=== PATIENT | male | born 1930 | race Caucasian/White ===

== ENCOUNTER 2016-11-18 11:16 | Day surgery (SDC) | payer MEDICARE ==
[~2016-11-18] VITALS: Ht 175.3 cm; Wt 95.8 kg
[2016-11-18] VITALS (8 sets, daily range): BP systolic 99–159; BP diastolic 65–87; PULSE 67–78; RESP 14–18; O2SAT 95–98
[~2016-11-18 11:16] MED LIST: ASPI-973 PO; CeFAZolin 2 Gm/50 mL D5W IV Premix IV ONE; METO25TA3 PO; SIMV40TA5 PO; VITA100T6 PO; ZOLP10TA5 PO
[2016-11-18] MEDS ORDERED: MetoCLOpramide 5 mg/mL 2 mL Inj ONE (11:17)
[2016-11-18] MEDS ORDERED: Dexamethasone 4 mg/mL Inj ONE (11:17)
[2016-11-18] MEDS ORDERED: Propofol 10,000 mCg/mL 20 mL Inj ONE (11:17)
[2016-11-18] MEDS ORDERED: Ondansetron 2 mg/mL 2 mL Inj ONE (11:17)
[2016-11-18] MEDS: Lactated Ringer's 1,000 ML IV SCH ×2 (11:43→15:03)
[2016-11-18] MEDS ORDERED: Lactated Ringer's 500 ML IV PRN (14:33)
[2016-11-18] MEDS ORDERED: Lactated Ringer's 1,000 ML IV SCH (14:33)
--- NOTE | 2016-11-18 14:33 | PCM.HPANE ---
Patient Data Surgeon Admitting Provider: Attending Provider:Khalif Ivey MD Primary Care Physician:Lindsey Hernandez MD Other Provider:Lanette Rinconingham Anesthesia Reason for Visit Right Inguinal Hernia Ht/WT & BMI Height (Feet): 5 Height (Inches): 9 Weight (Kilograms): 95.8 Body Mass Index 31.00 Allergies Coded Allergies: No Known Allergies (Verified Allergy, Unknown, 11/18/16) Past Anesthesia History Anesthesia History: Denies:: Abnormal Airway, Anesthesia Reactions, Difficult Intubation, Fam Anesthesia Reaction, Fam Malignant Hypertherm, Malignant Hyperthermia Diabetes History Hx Diabetes?: No MRSA MRSA: No Medications Blood Thinner: Aspirin Hypertension Medication: Yes Home Meds Incl Beta Tomi: Yes Date Beta Tomi Taken: Nov 18, 2016 Time Beta Tomi Taken: 629 Reported Medications Zolpidem 10 Mg [id number] Mg PO HS PRN For Insomnia Ref 0 11/17/16 Vitamin E Acid Succinate (Vitamin E)100 Unit [id number] Unit PO DAILY 11/17/16 Metoprolol Succinate ER (Toprol XL)25 Mg Qahanv31 Mg PO DAILY Ref 0 11/17/16 Simvastatin 40 Mg Atswmi32 Mg PO HS 30 Days Ref 0 11/17/16 Aspirin 81 Mg Jdaofh69 Mg PO DAILY Ref 0 11/17/16 Discontinued Reported Medications Zolpidem 10 Mg [id number] Mg PO HS PRN For Insomnia Ref 0 10/14/15 Aspirin 81 Mg Kqtuhb55 Mg PO DAILY Ref 0 10/14/15 Simvastatin 40 Mg Hcevii65 Mg PO HS 30 Days Ref 0 05/05/15 Metoprolol Succinate ER (Toprol XL)25 Mg Hmwujf91 Mg PO DAILY Ref 0 05/05/15 History HEENT History: Positive for:: Cataracts (cataracts bilaterally ) Hearing Problem (doesnt usually wear aides) Denies:: Abnormal Airway Difficult Intubation Dysphagia Glaucoma Sinus Problem TMJ Denture Type: Full- Upper Partial- Lower Hx of Heart Problems?: Yes Cardiovascular History: Positive for:: Cardiac Surgery (3 vessel CABG 2001- in [place] ) Hypertension Denies:: AICD Heart Murmur Irregular Heartbeat Pacemaker Peripheral Vascular Rheumatic Fever Hx of Respiratory Problem?: No Respiratory History: Positive for:: Use of C-PAP Machine (refuses sleep study) Denies:: Asthma COPD Emphysema Oxygen Administration Pneumonia Tuberculosis Use of Inhalers / NEBS Hx Neurologic Problems?: No Neurological History: Denies:: CVA Headaches Multiple Sclerosis Parkinson's Disease Seizures TIA Hx of GI Problems?: Yes Gastrointestinal History: Positive for:: Diverticulitis (hx of) Gall Bladder Disease (removed ) Denies:: Gastroesphageal Reflux Gastrointestinal Bleeding Heartburn Hepatitis Hiatal Hernia Liver Disease Rectal Bleeding (pilonidal cyst) Other GI Pertinent History: right inguinal hernia current admission problem. Hx of recal ca- treated with chemoradiation- no resection- Hx of Problems?: No Genitourinary History: Denies:: Kidney Stones Urinary Tract Infection Male Hx: Positive for:: Prostate Problems (BPH) Denies:: Scrotal Mass Testicular Surgery Skin History: Denies:: History Skin Disorders? Pressure Ulcers Hx Musculoskeletal Problems?: Yes Musculoskeletal History: Positive for:: Back Injury (spinal cyst removed 1953) Osteoarthritis Denies:: Fibromyalgia Joint Replacement Hx of Psycho/Social Problems?: No Psycho Social History: Denies:: Anxiety Hx Depression Hx Surgeries?: Yes (PYNIADAL CYST, BYPASS, GALLBALDDER, ) Hx Any Other Health Problems?: Yes Other History: Positive for:: Cancer (rectal ) Denies:: Thyroid Disease History Blood Transfusions: Positive for:: Accept Blood Products? Denies:: Blood Transfusions Hx Diabetes: No Hx Alcohol Use: NoHx Substance Use: No Smoking Status: Never Smoker Have You Smoked inLast 12 mo: No Stop/Bang Treated for Sleep Apnea?: No Do You Have a CPAP Machine?: No P-Blood Pressure: treated: Yes B- Body Mass Index > 35 kg/m2: No A- Age over 50: Yes N- Neck Large Circumference: No G- Gender Male: Yes ELVER Risk Assessment: Low Risk, <3 Yes Risk Assessment Category Category 1A: Patient has history of documented sleep apnea, and HAS NOT received any narcotic, sedative or anesthesia administration during this stay. Category 1B: Patient has history of documented sleep apnea, and HAS received any narcotic , sedative or anesthesia administration during this stay Category 2: Patient has SUSPECTED Obstructive Sleep Apnea, and HAS received any narcotic , sedative or anesthesia administration during this stay. Category 3: Patient has SUSPECTED Obstructive Sleep Apnea and HAS NOT received narcotic, sedative or anesthesia administration during this stay. Category 4: Outpatient in Procedural Areas with known sleep apnea or who screen positive for High Risk via the STOP/BANG questionnaire. Exam Exam Vital Signs Vital Signs Date Time Temp Pulse Resp B/P Pulse Ox O2 Delivery O2 Flow Rate FiO2 11/18/16 11:40 36.4 76 18 137/86 98 Room Air General Appearance: Oriented X3 HEENT/AIRWAY: MP 2 Lungs: Normal Air Movement Heart: Regular Rate/Rhythm Meds/Labs/Diagnostics Admission Meds Current Medications Lactated Ringer's (Lr) 1,000 ml @ 120 mls/hr Q8H20M IV Last administered on t 11:43; Start 11/18/16 at 05:00; Stop 11/18/16 at 13:19; Status DC Plan Impression Patient chart reviewed, patient interviewed and anesthestic plan with risks, benefits, and alternatives discussed, and informed consent obtained. NPO Status: 0900 TOAST ASA Physical Status: ASA3 Severe Disease Anesthetic Plan: GA Bene/Risks/Altern/Consents: Yes Isiah Sumner MD Nov 18, 2016 14:33
[2016-11-18] MEDS ORDERED: Phenylephrine 10,000 mCg/mL Inj IVPUSH PRN (14:35)
[2016-11-18] MEDS ORDERED: MetoCLOpramide 5 mg/mL 2 mL Inj IVPUSH PRN (14:35)
[2016-11-18] MEDS ORDERED: HYDROmorphone 1 mg/mL Inj IVPUSH PRN (14:35)
[2016-11-18] MEDS ORDERED: fentaNYL-PF 50 mCg/mL 2 mL Inj IVPUSH PRN (14:35)
[2016-11-18] MEDS ORDERED: Dexamethasone 4 mg/mL Inj IVPUSH PRN (14:35)
[2016-11-18] MEDS ORDERED: Ondansetron 2 mg/mL 2 mL Inj IVPUSH PRN (14:35)
[2016-11-18] MEDS ORDERED: EPHEDrine Sulfate 50 mg/mL Inj IVPUSH PRN (14:35)
[2016-11-18] MEDS ORDERED: Labetalol 5 mg/mL 4 mL Inj IV PRN (14:35)
[2016-11-18] MEDS ORDERED: Bupivacaine-MPF 0.25% 30 mL Inj INFILTRATE ONE (15:13)
[2016-11-18] MEDS ORDERED: Lactated Ringer's 1,000 ML IV ONE (15:49)
--- NOTE | 2016-11-18 17:41 | PCM.ANEP2 ---
Post Anesthesia Evaluation ASA/CMS Post Anesthesia VS in Patient's Normal Range?: Yes Resp Stable; Airway Patent?: Yes CV Function & Hydration Stable: Yes Mental Status Recovered?: Yes Pain control Satisfactory?: Yes N/V Control Satisfactory?: Yes Isiah Sumner MD Nov 18, 2016 17:41
--- NOTE | 2016-11-18 17:41 | PCM.ANEP1 ---
Post Anesthesia Phase 1 PACU Phase 1 Assessment Vital Signs Vital Signs Date Time Temp Pulse Resp B/P Pulse Ox O2 Delivery O2 Flow Rate FiO2 11/18/16 17:19 36.2 69 16 159/74 97 Room Air 11/18/16 16:46 36.1 67 16 99/87 95 Room Air 11/18/16 16:39 68 14 126/69 96 Room Air 11/18/16 16:25 77 14 125/67 98 Simple Mask 10 11/18/16 16:20 75 14 120/68 98 Simple Mask 10 11/18/16 16:15 77 17 121/66 97 Simple Mask 10 11/18/16 16:10 36.5 78 15 126/65 97 Simple Mask 10 11/18/16 11:40 36.4 76 18 137/86 98 Room Air Anesthetic Administered: GA Level of Alertness: Awake, talking Pain: No Nausea or Vomiting: No Oxygen Delivery: Room Air Lungs: Normal Air Movement Isiah Sumner MD Nov 18, 2016 17:41
--- NOTE | 2016-11-19 02:04 | OP ---
[address] [address] OPERATIVE REPORT PATIENT: VENKAT HUFF : 1930 MR#: [id number] ADMIT: 11/18/2016 JOB ID: [id number] DATE OF SURGERY: 11/18/2016 ANESTHESIA: General. PREOPERATIVE DIAGNOSIS(ES): Symptomatic right inguinal hernia. POSTOPERATIVE DIAGNOSIS(ES): Symptomatic right inguinal hernia (indirect). OPERATION: Open repair of right inguinal hernia using mesh. SURGEON: Khalif Ivey MD. TRANSITION OF CARE SPECIALIST: Bucky Syed PA-C (the pathology assistant was required for the safe and timely completion of case). COMPLICATIONS: None. ESTIMATED BLOOD LOSS: Minimal. CONDITION: Satisfactory. SPECIMEN: None. FINDINGS: There was a dense amount of scar tissue making the anatomy very difficult to define. Also, it appeared that he had pretty much blown out his external ring. There was a moderate-sized indirect hernia containing fat. This was repaired with a piece of soft mesh. INDICATION/SIGNIFICANT HISTORY: The patient is an 86-year-old man who noted some right groin discomfort about a month ago. He underwent evaluation for this and eventually was diagnosed with an inguinal hernia and then referred to me. After discussion, he elected to undergo repair. OPERATIVE TECHNIQUE: The patient was taken to the operating room and placed in the supine position. General anesthesia was administered. Perioperative antibiotics were given. The abdomen and groin were prepped and draped in standard surgical fashion. A procedure pause was performed. Local anesthetic was injected to perform an inguinal block. A right inguinal incision was made and dissection carried down through skin and subcutaneous tissue. The planes were largely obliterated and it took some time to even find the aponeurosis of the external oblique. I found the external ring which was largely blown out with contents of a hernia. I opened this in somewhat of retrograde fashion to enter the canal. It was really difficult to identify what was what. Eventually, I was able to get around the cord structures. There was a large fatty appendage which was reducible. I opened what appeared to be the sac and then freed this off the rest of the cord structures. I high ligated the fatty contents with 3-0 silk as I could not completely reduce it. There is a small linear structure adherent to the inguinal floor, which I elevated but it restricted my ability to place mesh. I eventually elected to transect it and it turned out to be an artery. A piece of soft polypropylene mesh was then trimmed to the appropriate size and secured in place using interrupted 2-0 PDS sutures. Because the external ring was largely blown out the aponeurosis of the external oblique did not fully cover this. Yovany's was then closed with interrupted 3-0 Vicryl. The skin was closed using 4-0 Monocryl. The entire procedure was well tolerated without complication. MARILUZ
== END 2016-11-18 23:59 | disposition home or self-care (01) ==
LOC: SAS 11:16
PROVIDERS: ATTEND General Practice
DX: K40.90 Unilateral inguinal hernia, without obstruction or gangrene, not specified as recurrent (principal); I10 Essential (primary) hypertension; F32.9 Major depressive disorder, single episode, unspecified; I25.10 Atherosclerotic heart disease of native coronary artery without angina pectoris; E78.00 Pure hypercholesterolemia, unspecified; Z85.048 Personal history of other malignant neoplasm of rectum, rectosigmoid junction, and anus; Z92.21 Personal history of antineoplastic chemotherapy; Z92.3 Personal history of irradiation; Z95.1 Presence of aortocoronary bypass graft; Z87.891 Personal history of nicotine dependence; Z79.82 Long term (current) use of aspirin
CPT/HCPCS: 49505; C1781; J0690; J1100; J2405; J2765; J7120